=== PATIENT | male | born 1950 | race Caucasian/White ===

== ENCOUNTER 2021-11-10 20:30 | Emergency (ER) | payer MEDICARE | END 2021-11-10 20:55 | disposition home or self-care (01) | LOC: ER1 20:30 | DX: U07.1 COVID-19 (principal); I11.9 Hypertensive heart disease without heart failure; E78.5 Hyperlipidemia, unspecified; Z79.01 Long term (current) use of anticoagulants | CPT/HCPCS: 99283 ==